=== PATIENT | female | born 1950 | race Caucasian/White ===

== ENCOUNTER 2016-11-01 12:51 | Outpatient (CLI) | payer MEDICARE | END 2016-11-01 23:59 | DX: I48.2 Chronic atrial fibrillation (principal) ==

== ENCOUNTER 2017-02-25 14:09 | Emergency (ER) | payer MEDICARE, OTHER ==
[2017-02-25] MEDS ORDERED: diltiaZEM INJ 5 MG/ML VIAL IVP STA (14:52)
--- NOTE | 2017-02-25 14:56 | ED Physician Documentation ---
History of Present Illness - Stated complaint Stated Complaint: HEART PALPITATIONS,DIZZY - Chief complaint Chief Complaint: Cardiac - History obtained from History obtained from: Patient - Additonal information Additional information: The patient is a 66-year-old female with history of paroxysmal atrial fibrillation who presents with heart palpitations and dizziness that started 2 days ago and have been waxing and waning since that time. She felt a pulse rate in the 140s today. She reports associated mild chest discomfort, shortness of breath, and lightheadedness with standing. She denies nausea or vomiting. Her medications include metoprolol 75 mg twice daily, and warfain. She has had no recent change in her medication. Her last similar episode occurred about 2 weeks ago and converted after about 4 hours after she took an extra metoprolol dose. Her INR was checked 1 week ago and was in the therapeutic range at 3.4. Review of Systems Constitutional: denies: Fever, Fatigue Ears: denies: Tinnitus/ringing Nose: denies: Congestion Throat: denies: Sore throat Cardiac: reports: Chest pain / pressure, Palpitations Respiratory: reports: Dyspnea. denies: Cough GI: denies: Abdominal Pain, Nausea, Vomiting : denies: Dysuria Skin: denies: Rash Musculoskeletal: denies: Back pain, Extremity swelling Neurologic: denies: Focal weakness, Numbness, Headache PD PAST MEDICAL HISTORY - Past Medical History Past Medical History: Yes Cardiovascular: Coronary artery disease, Atrial fibrillation, Arrhythmia Respiratory: None Neuro: Headache/migraine Endocrine/Autoimmune: HyPOthyroidism GI: Other ADJUNCT FACULTY: None HEENT: None Psych: None Musculoskeletal: Osteoarthritis Derm: None - Past Surgical History Past Surgical History: Yes General: Cholecystectomy Ortho: Knee replacement - Present Medications Home Medications: Ambulatory Orders Medication Instructions Recorded Confirmed Aspirin [Aspir 81] 81 mg PO DAILY 01/18/13 02/27/17 DULoxetine [Cymbalta] 0 mg PO DAILY 01/18/13 02/27/17 Levothyroxine [Synthroid] 50 mcg DAILY 01/18/13 02/27/17 Metoprolol Tartrate [Lopressor] 175 mg PO DAILY 01/18/13 02/27/17 Pregabalin [Lyrica] 100 mg PO BID 01/18/13 02/27/17 Estradiol [Dayanara] 1 each TD DAILY 06/02/13 02/27/17 traZODone [Desyrel] 50 mg PO HS 06/02/13 02/27/17 Amiodarone HCl 1 tab PO DAILY 02/27/17 02/27/17 Warfarin [Coumadin] 2.5 mg PO DAILY 02/27/17 02/27/17 - Allergies Allergies/Adverse Reactions: Allergies Allergy/AdvReac Type Severity Reaction Status Date / Time prochlorperazine edisylate * Allergy Unknown unknown Verified 02/27/17 21:41 [From Compazine] prochlorperazine maleate * Allergy Unknown unknown Verified 02/27/17 21:41 [From Compazine] tramadol Allergy Unknown unknown Verified 02/27/17 21:41 NSAIDS (Non-Steroidal AdvReac Severe hx renal Verified 02/27/17 21:41 Anti-Inflamma problems gabapentin AdvReac Unknown Cramps Verified 02/27/17 21:41 rivaroxaban [From Xarelto] AdvReac Unknown Verified 02/27/17 21:41 - Social History Does the pt smoke?: No Smoking Status: Never smoker Does the pt drink ETOH?: No Does the pt have substance abuse?: No - Immunizations Immunizations are current?: Yes - POLST Patient has POLST: No PD ED PE NORMAL - Vitals Vital signs reviewed: Yes (tachycardic) - General General: Alert and oriented X 3, Well developed/nourished, Other (overweight) - HEENT HEENT: Atraumatic, Pharynx benign - Neck Neck: No adenopathy, No JVD - Cardiac Cardiac: No murmur, Other (Rapid rate, irregularly irregular rhythm.) - Respiratory Respiratory: No respiratory distress, Clear bilaterally - Abdomen Abdomen: Soft, Non tender - Back Back: No CVA TTP - Derm Derm: No rash - Extremities Extremities: No edema, No calf tenderness / cord - Neuro Neuro: Alert and oriented X 3, No motor deficit, No sensory deficit Results - Vitals Vitals: Oxygen O2 Source Room air Oxygen Flow Rate 2 - EKG (time done) 14:45 Rate: Rate (enter#) (114) Rhythm: Atrial fibrillation [place]: Normal Intervals: Normal [place] QRS: Normal Ischemia: Normal ST segments Computer interpretation: Agree with computer 17:05 Rate: Rate (enter#) (124) Rhythm: Atrial fibrillation Compare to prior EKG: Unchanged from prior EKG Computer interpretation: Agree with computer 18:04 Rate: Rate (enter#) (75) Rhythm: NSR, LAE [place]: Normal Intervals: Normal [place] QRS: Normal Ischemia: Normal ST segments Compare to prior EKG: Changed from prior EKG (No longer in a-fib.) Computer interpretation: Agree with computer - Labs Labs: Laboratory Tests 02/25/17 02/25/17 02/25/17 14:55 14:55 14:55 WBC 6.6 RBC 4.56 Hgb 12.1 Hct 37.5 MCV 82.3 MCH 26.6 L MCHC 32.3 RDW 16.5 H Plt Count 225 MPV 8.0 Neut # 3.4 Lymph # 2.0 Hunt # 0.5 Eos # 0.6 Baso # 0.1 Absolute Nucleated RBC 0.00 Nucleated RBCs 0.0 PT INR Sodium 140 Potassium 4.1 Chloride 102 Carbon Dioxide 30 Anion Gap 8.0 BUN 17 Creatinine 1.0 Estimated GFR (MDRD) 55 L Glucose 109 H Calcium 9.2 Total Bilirubin 0.5 AST 32 ALT 37 Alkaline Phosphatase 103 Troponin I < 0.04 Total Protein 7.3 Albumin 3.9 Globulin 3.4 Albumin/Globulin Ratio 1.1 Lipase 25 02/25/17 14:55 WBC RBC Hgb Hct MCV MCH MCHC RDW Plt Count MPV Neut # Lymph # Hunt # Eos # Baso # Absolute Nucleated RBC Nucleated RBCs PT 33.7 H INR 3.0 H Sodium Potassium Chloride Carbon Dioxide Anion Gap BUN Creatinine Estimated GFR (MDRD) Glucose Calcium Total Bilirubin AST ALT Alkaline Phosphatase Troponin I Total Protein Albumin Globulin Albumin/Globulin Ratio Lipase Procedures - Cardioversion 1 Time of attempt: 16:56 Indication: Tachyarrhythmia Risks, benefits, alternatives explained to: Pt Prep: IV, O2, residential monitor, Pulse ox, Airway equip Meds: Ativan (1 mg), Propofol (60mg) CS via: AP approach Sync: Biphasic, 200j Post cardioversion rhythm: A-fib Performed by: DANIEL PASTOR 2 Time of attempt: 16:57 Indication: Tachyarrhythmia Prep: IV, O2, residential monitor, Pulse ox, Airway equip CS via: AP approach Sync: 200j Post cardioversion rhythm: A-fib Performed by: DANIEL PASTOR 3 Time of attempt: 16:58 Indication: Tachyarrhythmia Prep: IV, O2, residential monitor, Pulse ox, Airway equip CS via: AP approach Sync: 300j Post cardioversion rhythm: A-fib Performed by: ED MD 4 Time of attempt: 17:00 Indication: Tachyarrhythmia Prep: IV, O2, residential monitor, Pulse ox, Airway equip Meds: Propofol (Additional 20 mg administered.) Sync: 360j Post cardioversion rhythm: A-fib Performed by: ED MD [facility] MEDICAL DECISION MAKING - ED course Complexity details: reviewed old records, reviewed results, re-evaluated patient , considered differential, d/w patient, d/w family, d/w apprenticeship consultant ED course: The patient's presentation is significant for atrial fibrillation with rapid ventricular response. This is a recurrent episode for her, despite treatment with metoprolol at 75 mg twice daily. She is on warfarin, with an INR today of 3.0. Her electrolytes are normal. Treatment in the emergency department included administration of Cardizem 10 mg IV, which slowed the patient's rate, but did not convert her rhythm. After discussing risks and benefits with her, the patient underwent attempts with electrocardioversion. She was sedated with Ativan and propofol, and despite four attempts at cardioversion up to 360 J, she remained in atrial fibrillation. Subsequently procainamide was administered IV, and the patient's rhythm converted to normal sinus before she had received the entire gram of procainamide. I discussed her condition with committee member who advises that she continue her current dosage of metoprolol and follow-up this week with her primary committee member, Dr. Urbina. I discussed with the patient and her the importance of outpatient follow -up, as well as potentially worrisome signs or symptoms that should prompt reevaluation in the emergency department. Departure - Departure Disposition: 01 Home, Self Care Clinical Impression: Atrial fibrillation status post cardioversion Condition: Stable Instructions: ED Afib Follow-Up: Shaunna Urbina DO [Physician No Access] - Teresa Garcia MD [Primary Care Provider] - Comments: Continue metoprolol at 75 mg twice daily. Continue warfarin as previously prescribed. Follow up with your committee member this week. Call to schedule appointment. Return to the emergency department if you develop recurrent atrial fibrillation with shortness of breath, chest discomfort, or otherwise worsening symptoms. Discharge Date/Time: 02/25/17 18:49
[2017-02-25] MEDS ORDERED: SODIUM CHLORIDE FLUSH 0.9% 10 ML SYRINGE IVP ONE (15:04)
[2017-02-25] MEDS ORDERED: diltiaZEM INJ 5 MG/ML VIAL ONE (15:05)
[2017-02-25 15:10] LABS: BASOPHILS # (AUTO) 0.1 10^3/uL (0.0-0.1); BASOPHILS % (AUTO) 1.1 %; EOSINOPHILS # (AUTO) 0.6 10^3/uL (0.0-0.7); EOSINOPHILS % (AUTO) 9.5 %; HCT - HEMATOCRIT 37.5 % (37.0-47.0); HGB - HEMOGLOBIN 12.1 g/dL (12.0-16.0); LYMPHOCYTES % (AUTO) 30.7 %; MEAN CORPUSCULAR HEMOGLOBIN 26.6 pg (27.0-31.0); MEAN CORPUSCULAR HGB CONC 32.3 g/dL (32.0-36.0); MEAN CORPUSCULAR VOLUME 82.3 fL (81.0-99.0); MONOCYTES # (AUTO) 0.5 10^3/uL (0.0-1.0); NEUTROPHILS # (AUTO) 3.4 10^3/uL (1.5-6.6); NEUTROPHILS % (AUTO) 50.7 %; RED BLOOD COUNT 4.56 10^6/uL (4.20-5.40); RED CELL DISTRIBUTION WIDTH 16.5 % (12.0-15.0); UNCORRECTED WHITE BLOOD COUNT 6.6 x10^3/uL; WHITE BLOOD COUNT 6.6 x10^3/uL (4.8-10.8)
[2017-02-25] MEDS ORDERED: SODIUM CHLORIDE 0.9% 250 ML IV ONE (15:17)
[2017-02-25 15:23] LABS: PT - PROTHROMBIN TIME 33.7 secs (9.9-12.6)
[2017-02-25 15:24] LABS: ALBUMIN/GLOBULIN RATIO 1.1 (1.0-2.2); BILIRUBIN,TOTAL 0.5 mg/dL (0.2-1.0); CALCIUM 9.2 mg/dL (8.5-10.3); POTASSIUM 4.1 mmol/L (3.5-5.0); TOTAL PROTEIN 7.3 g/dL (6.7-8.2)
[2017-02-25] MEDS ORDERED: MIDAZOLAM 2 MG/2 ML VIAL IVP STA (16:41)
[2017-02-25] MEDS ORDERED: PROPOFOL 200 MG/20 ML VIAL IVP STA (16:41)
[2017-02-25] MEDS ORDERED: PROPOFOL 200 MG/20 ML VIAL IVP ONE (16:45)
[2017-02-25] MEDS ORDERED: MIDAZOLAM 2 MG/2 ML VIAL ONE (16:45)
[2017-02-25] MEDS ORDERED: PROCAINAMIDE 100 MG/1 ML 10 ML MDV IV ONE (17:10)
[2017-02-25] MEDS ORDERED: PROCAINAMIDE 1,000 MG in SODIUM CHLORIDE 0.9% 240 ML IV STA (17:19)
[2017-02-25 18:31] VITALS: BP 131/95
== END 2017-02-25 18:49 | disposition home or self-care (01) ==
LOC: ED 14:09
DX: I48.0 Paroxysmal atrial fibrillation (principal); I25.10 Atherosclerotic heart disease of native coronary artery without angina pectoris; Z79.01 Long term (current) use of anticoagulants; Z79.82 Long term (current) use of aspirin; Z96.659 Presence of unspecified artificial knee joint
CPT/HCPCS: 36415; 80053; 83690; 84484; 85025; 85610; 92960; 93005; 94770; 96361; 96365; 96375; 99152; 99284; J2690

== ENCOUNTER 2017-02-27 20:51 | Outpatient (CLI) | payer MEDICARE, OTHER | END 2017-02-27 20:52 | disposition critical access hospital (66) | LOC: EMS 20:51 | PROVIDERS: ATTEND Surgery | DX: R09.89 Other specified symptoms and signs involving the circulatory and respiratory systems (principal) | CPT/HCPCS: A0425; A0427 ==

== ENCOUNTER 2017-02-27 21:34 | Emergency (ER) | payer MEDICARE, OTHER ==
--- NOTE | 2017-02-27 21:53 | ED Physician Documentation ---
PD HPI CHEST PAIN - Stated complaint Stated Complaint: AFIB - Chief complaint Chief Complaint: Cardiac - History obtained from History obtained from: Patient - History of Present Illness Timing - onset: How many hours ago (few), Today Timing - duration: Hours (onset of fast heart rate earlier and talked with Auricular Therapist, who directed extra dose of Metoprolol PO. She had also been given Rx for starting Amiodarone and was directed to start that. Was not improving so called EMS. David, Medics note her rhythm transitioned to NSR with PVCs.) Timing - details: Abrupt onset, Now resolved Quality: Pressure, Tightness Location: Substernal Radiation: No: Jaw, Neck, Back, Abdominal, Left upper extremity, Right upper extremity, Other Worsened by: No: Movement, Palpation, Position Associated symptoms: Palpitations. No: Shortness of air, Nausea, Feeling faint / dizzy Similar symptoms before: Diagnosis (atrial fib paroxysmal) Recently seen: Emergency Dept (just couple days ago with improvement from fast afib to NSR with Procanamide (cardioversion did not convert it). Talked with Auricular Therapist, who Rx Amiodarone.) Review of Systems Constitutional: denies: Fever, Chills Nose: denies: Rhinorrhea / runny nose, Congestion Throat: denies: Sore throat Cardiac: reports: Palpitations. denies: Chest pain / pressure, Pedal edema, Calf pain Respiratory: denies: Dyspnea, Cough GI: denies: Vomiting, Diarrhea Musculoskeletal: denies: Extremity swelling Neurologic: denies: Focal weakness, Numbness, Near syncope PD PAST MEDICAL HISTORY - Past Medical History Cardiovascular: Coronary artery disease, Atrial fibrillation, Arrhythmia Respiratory: None Neuro: Headache/migraine Endocrine/Autoimmune: HyPOthyroidism GI: Other TEST ENG: None HEENT: None Psych: None Musculoskeletal: Osteoarthritis Derm: None - Past Surgical History Past Surgical History: Yes General: Cholecystectomy Ortho: Knee replacement - Present Medications Home Medications: Ambulatory Orders Medication Instructions Recorded Confirmed Aspirin [Aspir 81] 81 mg PO DAILY 01/18/13 02/27/17 DULoxetine [Cymbalta] 0 mg PO DAILY 01/18/13 02/27/17 Levothyroxine [Synthroid] 50 mcg DAILY 01/18/13 02/27/17 Metoprolol Tartrate [Lopressor] 175 mg PO DAILY 01/18/13 02/27/17 Pregabalin [Lyrica] 100 mg PO BID 01/18/13 02/27/17 Estradiol [Dayanara] 1 each TD DAILY 06/02/13 02/27/17 traZODone [Desyrel] 50 mg PO HS 06/02/13 02/27/17 Amiodarone HCl 1 tab PO DAILY 02/27/17 02/27/17 Warfarin [Coumadin] 2.5 mg PO DAILY 02/27/17 02/27/17 - Allergies Allergies/Adverse Reactions: Allergies Allergy/AdvReac Type Severity Reaction Status Date / Time prochlorperazine edisylate * Allergy Unknown unknown Verified 02/27/17 21:41 [From Compazine] prochlorperazine maleate * Allergy Unknown unknown Verified 02/27/17 21:41 [From Compazine] tramadol Allergy Unknown unknown Verified 02/27/17 21:41 NSAIDS (Non-Steroidal AdvReac Severe hx renal Verified 02/27/17 21:41 Anti-Inflamma problems gabapentin AdvReac Unknown Cramps Verified 02/27/17 21:41 rivaroxaban [From Xarelto] AdvReac Unknown Verified 02/27/17 21:41 - Social History Does the pt smoke?: No Smoking Status: Never smoker Does the pt drink ETOH?: No Does the pt have substance abuse?: No - Immunizations Immunizations are current?: Yes - POLST Patient has POLST: No PD ED PE NORMAL - Vitals Vital signs reviewed: Yes - General General: Alert and oriented X 3, No acute distress, Well developed/nourished - Neck Neck: Supple, no meningeal sign, No adenopathy, No JVD, No bruit - Cardiac Cardiac: RRR, No murmur - Respiratory Respiratory: Clear bilaterally - Extremities Extremities: No tenderness to palpate, Normal ROM s pain, No edema, No calf tenderness / cord Results - Vitals Vitals: Vital Signs - 24 hr 02/27/17 02/27/17 02/27/17 21:37 23:01 23:02 Temperature 37.2 C Heart Rate 79 67 Respiratory 20 16 Rate Blood Pressure 160/85 H 145/68 H O2 Saturation 98 97 Oxygen O2 Source Room air - EKG (time done) 21:41 Rate: Rate (enter#) (88) Rhythm: NSR (with frequent PVCs (bigeminy at times).) Ischemia: No: ST elevation c/w ischemia, ST depression PD MEDICAL DECISION MAKING - ED course Complexity details: reviewed old records, considered differential (resolved to NSR with frequent PVCs by ED arrival. Remained NSR and discharged home. Had had labs/lytes checked recently (last few days). ), d/w patient Departure - Departure Disposition: Home, Self Care Clinical Impression: Paroxysmal atrial fibrillation Condition: Stable Record reviewed to determine appropriate education?: Yes Instructions: ED Afib Follow-Up: Teresa Garcia MD [Primary Care Provider] - Comments: Continue your current medications and the new amiodarone prescribed by her field worker. Maintain good hydration. Return as needed. Discharge Date/Time: 02/27/17 23:02
[2017-02-27 23:02] VITALS: BP 145/68
== END 2017-02-27 23:02 | disposition home or self-care (01) ==
LOC: EDUNIT# → ED 21:34
DX: I48.0 Paroxysmal atrial fibrillation (principal); R94.31 Abnormal electrocardiogram [ECG] [EKG]; I25.10 Atherosclerotic heart disease of native coronary artery without angina pectoris; E03.9 Hypothyroidism, unspecified; Z96.659 Presence of unspecified artificial knee joint; Z79.01 Long term (current) use of anticoagulants; Z79.82 Long term (current) use of aspirin
CPT/HCPCS: 99283; 99284

== ENCOUNTER 2017-12-28 18:55 | Outpatient (CLI) | payer MEDICARE, OTHER | END 2017-12-28 18:56 | disposition critical access hospital (66) | LOC: EMS 18:55 | PROVIDERS: ATTEND Surgery | DX: R11.2 Nausea with vomiting, unspecified (principal); R10.9 Unspecified abdominal pain; R51 Headache; R19.7 Diarrhea, unspecified | CPT/HCPCS: A0425; A0427 ==

== ENCOUNTER 2017-12-28 19:41 | Emergency (ER) | payer MEDICARE, OTHER ==
--- NOTE | 2017-12-28 20:45 | ED Physician Documentation ---
PD HPI NVD - Stated complaint Stated Complaint: NAUSEA, VOMITING - Chief complaint Chief Complaint: Abd Pain - History obtained from History obtained from: Patient - History of Present Illness Timing - onset: Today Timing - details: Gradual onset (some onset of nausea with less appetite starting this morning and then abruptly worse with nausea/vomiting/diarrhea starting about 3 pm, which has continued.) Associated symptoms: No: Fever, Abdominal pain, Chest pain, Hematemesis, Hematochezia, Near syncope / syncope Contributing factors: No: Sick contact, Bad food, Travel, Recent antibiotics Improved by: No: Eating, Vomiting Worsened by: Eating Similar symptoms before: Has not had sx before Recently seen: Not recently seen Review of Systems Constitutional: reports: Myalgias. denies: Fever, Chills Nose: denies: Rhinorrhea / runny nose, Congestion Throat: denies: Sore throat Cardiac: denies: Chest pain / pressure, Palpitations Respiratory: denies: Dyspnea, Cough GI: reports: Nausea, Vomiting, Diarrhea. denies: Abdominal Pain, Hematemesis, Bloody / black stool : denies: Dysuria, Frequency Skin: denies: Rash, Lesions Neurologic: reports: Generalized weakness. 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 HEENT: None Psych: None Musculoskeletal: Osteoarthritis Derm: None - Past Surgical History Past Surgical History: Yes General: Cholecystectomy Ortho: Knee replacement - Present Medications Home Medications: Ambulatory Orders Medication Instructions Recorded Confirmed Aspirin [Aspir 81] 81 mg PO DAILY 01/18/13 02/27/17 DULoxetine [Cymbalta] 0 mg PO DAILY 01/18/13 02/27/17 Levothyroxine [Synthroid] 50 mcg DAILY 01/18/13 02/27/17 Metoprolol Tartrate [Lopressor] 175 mg PO DAILY 01/18/13 02/27/17 Pregabalin [Lyrica] 100 mg PO BID 01/18/13 02/27/17 Estradiol [Dayanara] 1 each TD DAILY 06/02/13 02/27/17 traZODone [Desyrel] 50 mg PO HS 06/02/13 02/27/17 Diphenoxylate/Atropine [Lomotil] 1 each PO QID PRN #15 tablet 12/28/17 Ondansetron Odt [Zofran] 4 mg TL Q6H PRN #15 tablet 12/28/17 - Allergies Allergies/Adverse Reactions: Allergies Allergy/AdvReac Type Severity Reaction Status Date / Time prochlorperazine edisylate * Allergy Unknown unknown Verified 12/28/17 19:47 [From Compazine] prochlorperazine maleate * Allergy Unknown unknown Verified 12/28/17 19:47 [From Compazine] tramadol Allergy Unknown unknown Verified 12/28/17 19:47 NSAIDS (Non-Steroidal AdvReac Severe hx renal Verified 12/28/17 19:47 Anti-Inflamma problems gabapentin AdvReac Unknown Cramps Verified 12/28/17 19:47 rivaroxaban [From Xarelto] AdvReac Unknown Verified 12/28/17 19:47 - Social History Does the pt smoke?: No Smoking Status: Never smoker Does the pt drink ETOH?: No Does the pt have substance abuse?: No - Immunizations Immunizations are current?: Yes - POLST Patient has POLST: No PD ED PE NORMAL - Vitals Vital signs reviewed: Yes - General General: Alert and oriented X 3, Well developed/nourished - HEENT HEENT: Pharynx benign - Neck Neck: Supple, no meningeal sign, No adenopathy - Cardiac Cardiac: RRR, No murmur - Respiratory Respiratory: Clear bilaterally - Abdomen Abdomen: Normal bowel sounds, Soft, Non tender, Non distended, No organomegaly - Back Back: No CVA TTP - Derm Derm: Normal color, Warm and dry - Extremities Extremities: No deformity, No tenderness to palpate, Normal ROM s pain, No edema , No calf tenderness / cord - Neuro Neuro: Alert and oriented X 3, No motor deficit, Normal speech Results - Vitals Vitals: Vital Signs - 24 hr 12/28/17 22:50 Temperature 36.6 C Heart Rate 79 Respiratory 18 Rate Blood Pressure 147/58 H O2 Saturation 100 Oxygen O2 Source Room air - Labs Labs: Laboratory Tests 12/28/17 12/28/17 12/28/17 20:42 20:56 20:56 WBC 11.6 H RBC 4.70 Hgb 13.2 Hct 41.3 MCV 87.9 MCH 28.2 MCHC 32.1 RDW 14.5 Plt Count 250 MPV 8.0 Neut # (Auto) 10.3 H Lymph # (Auto) 0.9 L [place] # (Auto) 0.4 Eos # (Auto) 0.1 Baso # (Auto) 0.1 Absolute Nucleated RBC 0.00 Nucleated RBC % 0.0 Sodium 139 Potassium 4.4 Chloride 104 Carbon Dioxide 28 Anion Gap 7.0 BUN 19 Creatinine 0.9 Estimated GFR (MDRD) 62 L Glucose 120 H Calcium 8.9 Total Bilirubin 0.5 AST 34 ALT 39 Alkaline Phosphatase 102 Total Protein 7.6 Albumin 4.0 Globulin 3.6 Albumin/Globulin Ratio 1.1 Lipase 47 Urine Color YELLOW Urine Clarity CLEAR Urine pH 5.5 Ur Specific [place] >=1.030 H Urine Protein 30 H Urine Glucose (UA) NEGATIVE Urine Ketones NEGATIVE Urine Occult Blood NEGATIVE Urine Nitrite NEGATIVE Urine Bilirubin NEGATIVE Urine Urobilinogen 0.2 (NORMAL) Ur Leukocyte Esterase NEGATIVE Urine RBC 0-5 Urine WBC 0-3 Ur Squamous Epith Cells MOD Squamous H Urine Bacteria Rare Urine Mucus Few Strands Ur Microscopic Review INDICATED Urine Culture Comments NOT INDICATED PD MEDICAL DECISION MAKING - ED course Complexity details: re-evaluated patient (she is feeling better with IV fluids and meds. ), considered differential (sounds like viral GE or food related. vomiting and diarrhea without stomach tenderness. ), d/w patient Departure - Departure Disposition: 01 Home, Self Care Clinical Impression: Nausea vomiting and diarrhea Condition: Stable Record reviewed to determine appropriate education?: Yes Instructions: ED Diet Vomiting Diarrhea Follow-Up: Teresa Garcia MD [Primary Care Provider] - Prescriptions: Diphenoxylate/Atropine [Lomotil] 1 each PO QID PRN #15 tablet PRN Reason: Diarrhea Ondansetron Odt [Zofran] 4 mg TL Q6H PRN #15 tablet PRN Reason: Nausea / Vomiting Comments: Small frequent fluids and bland food for the next day or so. Ondansetron if needed for nausea. Lomotil if needed for diarrhea. Illnesses with vomiting and diarrhea that come on abruptly like this usually are short-lived and decrease over a day or 2. Recheck if you are not better into tomorrow. You be considered infectious while still having symptoms and diarrhea. Good handwashing to prevent transfer of an infection. I hope your daughter does well with delivering her baby. Discharge Date/Time: 12/28/17 22:53
[2017-12-28 20:54] LABS: BILIRUBIN,URINE NEGATIVE (NEGATIVE); GLUCOSE, URINE (UA) NEGATIVE (NEGATIVE); KETONES,URINE (UA) NEGATIVE (NEGATIVE); LEUKOCYTE ESTERASE, URINE NEGATIVE (NEGATIVE); NITRITE,URINE NEGATIVE (NEGATIVE); OCCULT BLOOD,URINE NEGATIVE (NEGATIVE); PH,URINE 5.5 PH (5.0-7.5); PROTEIN,URINE 30 mg/dL (NEGATIVE); UROBILINOGEN,URINE 0.2 (NORMAL) E.U./dL (NORMAL)
[2017-12-28 20:59] LABS: CLARITY,URINE CLEAR (CLEAR)
[2017-12-28] MEDS ORDERED: SODIUM CHLORIDE 0.9% 1,000 ML IV ONE ×2 (20:59→21:00)
[2017-12-28] MEDS ORDERED: DIPHENOX/ATROPINE 2.5/0.025 MG TABLET PO STA (20:59)
[2017-12-28] MEDS ORDERED: ONDANSETRON 4 MG/2 ML VIAL IVP STA (20:59)
[2017-12-28] MEDS ORDERED: fentaNYL 100 MCG/2 ML VIAL IVP STA (21:00)
[2017-12-28 21:08] LABS: BASOPHILS # (AUTO) 0.1 10^3/uL (0.0-0.1); BASOPHILS % (AUTO) 0.5 %; EOSINOPHILS # (AUTO) 0.1 10^3/uL (0.0-0.7); EOSINOPHILS % (AUTO) 0.5 %; HGB - HEMOGLOBIN 13.2 g/dL (12.0-16.0); LYMPHOCYTES # (AUTO) 0.9 10^3/uL (1.5-3.5); LYMPHOCYTES % (AUTO) 7.5 %; MEAN CORPUSCULAR HEMOGLOBIN 28.2 pg (27.0-31.0); MEAN CORPUSCULAR HGB CONC 32.1 g/dL (32.0-36.0); MEAN CORPUSCULAR VOLUME 87.9 fL (81.0-99.0); MONOCYTES # (AUTO) 0.4 10^3/uL (0.0-1.0); NEUTROPHILS # (AUTO) 10.3 10^3/uL (1.5-6.6); NEUTROPHILS % (AUTO) 88.5 %; PLT - PLATELET COUNT 250 10^3/uL (130-450); RED CELL DISTRIBUTION WIDTH 14.5 % (12.0-15.0); WHITE BLOOD COUNT 11.6 x10^3/uL (4.8-10.8)
[2017-12-28 21:16] LABS: BACTERIA,URINE Rare /HPF (None Seen); MUCUS,URINE Few Strands; RBC,URINE 0-5 /HPF (0-5); SQUAMOUS EPITHELIAL CELL,UR MOD Squamous (<= Few)
[2017-12-28 21:21] LABS: ALBUMIN/GLOBULIN RATIO 1.1 (1.0-2.2); BILIRUBIN,TOTAL 0.5 mg/dL (0.2-1.0); CALCIUM 8.9 mg/dL (8.5-10.3); CREATININE 0.9 mg/dL (0.4-1.0); TOTAL PROTEIN 7.6 g/dL (6.7-8.2)
[2017-12-28] MEDS ORDERED: HALOPERIDOL 5 MG/ML VIAL IVP ONE (22:10)
[2017-12-28] MEDS ORDERED: ONDANSETRON ODT 4 MG Prepack 2 TL PRN (22:11)
[2017-12-28 22:51] VITALS: BP 147/58
== END 2017-12-28 22:53 | disposition home or self-care (01) ==
LOC: EDUNIT# → ED 19:41
DX: R11.2 Nausea with vomiting, unspecified (principal); R19.7 Diarrhea, unspecified; I25.10 Atherosclerotic heart disease of native coronary artery without angina pectoris; I48.91 Unspecified atrial fibrillation; I49.9 Cardiac arrhythmia, unspecified; E03.9 Hypothyroidism, unspecified; M19.90 Unspecified osteoarthritis, unspecified site; Z79.82 Long term (current) use of aspirin
CPT/HCPCS: 36415; 80053; 81001; 83690; 85025; 96361; 96374; 96375; 99283; 99284; A9270; 81003; 87086

== ENCOUNTER 2018-07-24 23:21 | Emergency (ER) | payer MEDICARE, OTHER ==
--- NOTE | 2018-07-25 00:32 | ED Physician Documentation ---
PD HPI CHEST PAIN - Stated complaint Stated Complaint: CHEST PX - Chief complaint Chief Complaint: Cardiac - History obtained from History obtained from: Patient - History of Present Illness Timing - onset: How many days ago (2) Timing - onset during: Light activity Timing - duration: Days (she has had 2 days of her heart rhythm feeling at times irregular c/w atrial fib. No chest pain nor dyspnea. Feeling lightheaded at times.) Timing - details: Abrupt onset, Still present, Intermittant Quality: No: Pressure, Tightness Location: Substernal (she is feeling irregular beats, but no pain nor pressure.) Radiation: No: Jaw, Neck Improved by: No: Rest Worsened by: No: Inspiration, Movement Associated symptoms: Shortness of air, Feeling faint / dizzy, Palpitations. No: Nausea, Vomiting, General Weakness, Cough Similar symptoms before: Diagnosis (has had atrial fib in the past and had been on several different meds. Had ablation last year and only on metoprolol now. Had not had atrial fib for a year or so and now having some occasional symptoms. 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 HEENT: None Psych: None Musculoskeletal: Osteoarthritis Derm: None - Past Surgical History Past Surgical History: Yes General: Cholecystectomy Ortho: Knee replacement - Present Medications Home Medications: Ambulatory Orders Medication Instructions Recorded Confirmed Aspirin [Aspir 81] 81 mg PO DAILY 01/18/13 02/27/17 DULoxetine [Cymbalta] 0 mg PO DAILY 01/18/13 02/27/17 Levothyroxine [Synthroid] 50 mcg DAILY 01/18/13 02/27/17 Metoprolol Tartrate [Lopressor] 175 mg PO DAILY 01/18/13 02/27/17 Pregabalin [Lyrica] 100 mg PO BID 01/18/13 02/27/17 Estradiol [Dayanara] 1 each TD DAILY 06/02/13 02/27/17 traZODone [Desyrel] 50 mg PO HS 06/02/13 02/27/17 Diphenoxylate/Atropine [Lomotil] 1 each PO QID PRN #15 tablet 12/28/17 Ondansetron Odt [Zofran] 4 mg TL Q6H PRN #15 tablet 12/28/17 Digoxin 125 mcg PO DAILY #20 tablet 07/25/18 Potassium Chloride 10 meq PO DAILY #15 tablet.er 07/25/18 - Allergies Allergies/Adverse Reactions: Allergies Allergy/AdvReac Type Severity Reaction Status Date / Time prochlorperazine edisylate * Allergy Unknown unknown Verified 12/28/17 19:47 [From Compazine] prochlorperazine maleate * Allergy Unknown unknown Verified 12/28/17 19:47 [From Compazine] tramadol Allergy Unknown unknown Verified 12/28/17 19:47 NSAIDS (Non-Steroidal AdvReac Severe hx renal Verified 12/28/17 19:47 Anti-Inflamma problems gabapentin AdvReac Unknown Cramps Verified 12/28/17 19:47 rivaroxaban [From Xarelto] AdvReac Unknown Verified 12/28/17 19:47 - Social History Does the pt smoke?: No Smoking Status: Never smoker Does the pt drink ETOH?: No Does the pt have substance abuse?: No - Immunizations Immunizations are current?: Yes - POLST Patient has POLST: No Results - Vitals Vitals: Vital Signs - 24 hr 07/24/18 07/25/18 07/25/18 23:32 00:02 01:29 Temperature 36.7 C Heart Rate 127 H 69 71 Respiratory 17 16 16 Rate Blood Pressure 153/118 H 178/108 H 138/87 H O2 Saturation 98 98 98 07/25/18 07/25/18 07/25/18 01:37 01:39 01:43 Temperature Heart Rate 68 69 65 Respiratory Rate Blood Pressure 180/78 H 165/96 H 172/82 H O2 Saturation 07/25/18 07/25/18 07/25/18 01:50 01:52 02:11 Temperature Heart Rate 66 69 87 Respiratory Rate Blood Pressure 157/64 H 147/80 H 141/92 H O2 Saturation 07/25/18 07/25/18 07/25/18 02:30 03:31 04:17 Temperature Heart Rate 148 H 74 70 Respiratory 14 16 16 Rate Blood Pressure 157/76 H 157/92 H 143/73 H O2 Saturation 99 96 96 Oxygen O2 Source Room air - Labs Labs: Laboratory Tests 07/24/18 07/24/18 07/24/18 23:40 23:40 23:40 WBC 8.0 RBC 5.05 Hgb 14.7 Hct 44.6 MCV 88.4 MCH 29.1 MCHC 33.0 RDW 14.7 Plt Count 276 MPV 8.7 Neut # (Auto) 4.2 Lymph # (Auto) 3.0 [place] # (Auto) 0.5 Eos # (Auto) 0.2 Baso # (Auto) 0.1 Absolute Nucleated RBC 0.03 Nucleated RBC % 0.4 Sodium 138 Potassium 3.4 L Chloride 99 L Carbon Dioxide 28 Anion Gap 11.0 BUN 14 Creatinine 0.9 Estimated GFR (MDRD) 62 L Glucose 104 H Calcium 9.3 Magnesium 2.2 Total Bilirubin 0.4 AST 23 ALT 28 Alkaline Phosphatase 95 B-Natriuretic Peptide 132 H Total Protein 8.7 H Albumin 4.6 Globulin 4.1 Albumin/Globulin Ratio 1.1 Lipase 32 Departure - Departure Disposition: 01 Home, Self Care Clinical Impression: Atrial fibrillation with rapid ventricular response Condition: Stable Record reviewed to determine appropriate education?: Yes Instructions: ED Afib Follow-Up: Teresa Garcia MD [Primary Care Provider] - Shaunna Urbina DO [Physician No Access] - Prescriptions: Digoxin 125 mcg PO DAILY #20 tablet Potassium Chloride 10 meq PO DAILY #15 tablet.er Comments: Continue current medications. Stay well hydrated. Take a potassium supplement daily for 10 days. Add Digoxin to your medications daily. Follow up with your Gas Tender, call for an appt. Recheck if persistent fast heart rate. Discharge Date/Time: 07/25/18 04:35
[2018-07-25] MEDS ORDERED: METOPROLOL 5 MG/5 ML VIAL IVP STA ×2 (01:06→02:28)
[2018-07-25] MEDS ORDERED: MAGNESIUM SULFATE 2 GRAM 2 GM/50 ML BAG IV ONE (01:06)
[2018-07-25] MEDS ORDERED: SODIUM CHLORIDE 0.9% 1,000 ML IV ONE (01:06)
[2018-07-25 01:19] LABS: BASOPHILS # (AUTO) 0.1 10^3/uL (0.0-0.1); BASOPHILS % (AUTO) 0.7 %; EOSINOPHILS # (AUTO) 0.2 10^3/uL (0.0-0.7); EOSINOPHILS % (AUTO) 2.2 %; HGB - HEMOGLOBIN 14.7 g/dL (12.0-16.0); LYMPHOCYTES % (AUTO) 37.3 %; MEAN CORPUSCULAR HEMOGLOBIN 29.1 pg (27.0-31.0); MEAN CORPUSCULAR VOLUME 88.4 fL (81.0-99.0); MEAN PLATELET VOLUME 8.7 fL (7.9-10.8); MONOCYTES # (AUTO) 0.5 10^3/uL (0.0-1.0); MONOCYTES % (AUTO) 6.5 %; NEUTROPHILS # (AUTO) 4.2 10^3/uL (1.5-6.6); NEUTROPHILS % (AUTO) 53.3 %; PLT - PLATELET COUNT 276 10^3/uL (130-450); RED BLOOD COUNT 5.05 10^6/uL (4.20-5.40); RED CELL DISTRIBUTION WIDTH 14.7 % (12.0-15.0)
[2018-07-25 01:26] LABS: ALBUMIN 4.6 g/dL (3.2-5.5); ALBUMIN/GLOBULIN RATIO 1.1 (1.0-2.2); BILIRUBIN,TOTAL 0.4 mg/dL (0.2-1.0); CALCIUM 9.3 mg/dL (8.5-10.3); CREATININE 0.9 mg/dL (0.4-1.0); MAGNESIUM 2.2 mg/dL (1.7-2.8); TOTAL PROTEIN 8.7 g/dL (6.7-8.2)
[2018-07-25] MEDS ORDERED: POTASSIUM BICARB 25 MEQ TABLET PO STA (02:00)
[2018-07-25] MEDS ORDERED: DIGOXIN 500 MCG/2 ML AMP IVP STA (03:17)
[2018-07-25 04:23] VITALS: BP 143/73
== END 2018-07-25 04:35 | disposition home or self-care (01) ==
LOC: ED 23:21
DX: I48.91 Unspecified atrial fibrillation (principal); I25.10 Atherosclerotic heart disease of native coronary artery without angina pectoris; Z86.79 Personal history of other diseases of the circulatory system; Z79.899 Other long term (current) drug therapy
CPT/HCPCS: 36415; 80053; 83690; 83735; 83880; 85025; 93005; 96361; 96365; 96375; 96376; 99284; A9270

== ENCOUNTER 2020-05-07 07:00 | Outpatient (CLI) | payer MEDICARE, OTHER | END 2020-05-07 23:59 | disposition home or self-care (01) | LOC: LAB.R 07:00 | PROVIDERS: ATTEND Physician Assistant | DX: N30.01 Acute cystitis with hematuria (principal) | CPT/HCPCS: 87086; 87181 ==

== ENCOUNTER 2020-05-25 08:00 | Outpatient (CLI) | payer MEDICARE, OTHER ==
[2020-05-25 20:00] LABS: BASOPHILS # (AUTO) 0.1 10^3/uL (0.0-0.1); BASOPHILS % (AUTO) 0.8 %; EOSINOPHILS # (AUTO) 0.2 10^3/uL (0.0-0.7); EOSINOPHILS % (AUTO) 2.5 %; HGB - HEMOGLOBIN 12.2 g/dL (12.0-16.0); LYMPHOCYTES # (AUTO) 2.2 10^3/uL (1.5-3.5); LYMPHOCYTES % (AUTO) 34.3 %; MEAN CORPUSCULAR HEMOGLOBIN 29.8 pg (27.0-31.0); MEAN CORPUSCULAR HGB CONC 32.1 g/dL (32.0-36.0); MEAN CORPUSCULAR VOLUME 92.7 fL (81.0-99.0); MONOCYTES # (AUTO) 0.6 10^3/uL (0.0-1.0); MONOCYTES % (AUTO) 8.6 %; NEUTROPHILS # (AUTO) 3.4 10^3/uL (1.5-6.6); NEUTROPHILS % (AUTO) 53.5 %; PLT - PLATELET COUNT 247 10^3/uL (130-450); RED CELL DISTRIBUTION WIDTH 12.9 % (12.0-15.0); WHITE BLOOD COUNT 6.4 x10^3/uL (4.8-10.8)
[2020-05-25 20:12] LABS: ALBUMIN 3.8 g/dL (3.2-5.5); BILIRUBIN,TOTAL 0.4 mg/dL (0.2-1.0); CALCIUM 9.1 mg/dL (8.5-10.3); TOTAL PROTEIN 7.5 g/dL (6.7-8.2)
== END 2020-05-25 23:59 | disposition home or self-care (01) ==
LOC: LAB.S 08:00
PROVIDERS: ATTEND Physician Assistant Medical
DX: N30.01 Acute cystitis with hematuria (principal); R30.0 Dysuria
CPT/HCPCS: 36415; 80053; 85025; 87086

== ENCOUNTER 2020-09-19 08:00 | Outpatient (CLI) | payer MEDICARE, OTHER | END 2020-09-19 23:59 | disposition home or self-care (01) | LOC: LAB.R 08:00 | PROVIDERS: ATTEND Physician Assistant | DX: N39.0 Urinary tract infection, site not specified (principal) | CPT/HCPCS: 87077; 87086; 87181 ==

== ENCOUNTER 2020-12-23 23:04 | Outpatient (CLI) | payer MEDICARE, OTHER | END 2020-12-23 23:05 | disposition critical access hospital (66) | LOC: EMS 23:04 | DX: F41.9 Anxiety disorder, unspecified (principal); R25.1 Tremor, unspecified; R00.2 Palpitations; R06.02 Shortness of breath | CPT/HCPCS: A0425; A0429 ==

== ENCOUNTER 2020-12-23 23:47 | Emergency (ER) | payer MEDICARE, OTHER ==
--- OUTSIDE RECORDS SUMMARY | 2020-12-23 23:58 | EXTERNAL MEDICAL SUMMARY RPT | Continuity of Care Document ---
:1950 Demographics Phone Unavailable Preferred Language Unknown Marital Status Unknown Gnosticism Affiliation Unknown Race Unknown Ethnic Group Unknown Author Organization [facility] Address [address] [phone] Phone Allergies Encounters Medications Problems Results
--- NOTE | 2020-12-24 00:57 | ED Physician Documentation ---
History of Present Illness - Stated complaint Stated Complaint: CHILLS,SWEATS, JITTERY - Chief complaint Chief Complaint: Cardiac - History obtained from History obtained from: Patient - History of Present Illness Timing: Yesterday Pain level now: 0 Improved by: rest Worsened by: standing, ambulating - Additonal information Additional information: Patient complains of feeling jittery, tremulous, and short of breath since yesterday morning. She says she has occasional PVCs but they had been noticeably more frequent today. she was started on prednisone, 40 mg QD, three days ago for arthritis. Review of Systems Constitutional: reports: Chills, Sweats. denies: Fever, Fatigue Cardiac: reports: Palpitations. denies: Chest pain / pressure, Pedal edema, Calf pain Respiratory: reports: Dyspnea. 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 HEENT: None Psych: None Musculoskeletal: Osteoarthritis Derm: None - Past Surgical History Past Surgical History: Yes General: Cholecystectomy Ortho: Knee replacement - Present Medications Home Medications: Ambulatory Orders Medication Instructions Recorded Confirmed Aspirin [Aspir 81] 81 mg PO DAILY 01/18/13 12/24/20 DULoxetine [Cymbalta] 60 mg PO DAILY 01/18/13 12/24/20 Levothyroxine [Synthroid] 50 mcg DAILY 01/18/13 12/24/20 Metoprolol Tartrate [Lopressor] 100 mg PO DAILY 01/18/13 12/24/20 Pregabalin [Lyrica] 35 mg PO BID 01/18/13 12/24/20 traZODone [Desyrel] 50 mg PO HS 06/02/13 12/24/20 Ketorolac Inj (60Mg) [Toradol Inj 60 mg IM PRN PRN 12/24/20 12/24/20 (60Mg)] LORazepam [Ativan] 0.5 - 1 mg PO TID PRN #14 tablet 12/24/20 Magnesium 500 mg PO DAILY 12/24/20 12/24/20 Naloxone HCl [Narcan] 4 mg NS PRN PRN 12/24/20 12/24/20 Nitrofurantoin [Macrobid] 100 mg PO PRN PRN 12/24/20 12/24/20 fentaNYL 100 MCG PATCH [Duragesic 25 mcg TOP Q3D 12/24/20 12/24/20 100mcg patch] predniSONE [Prednisone] 40 mg PO DAILY 12/24/20 12/24/20 - Allergies Allergies/Adverse Reactions: Allergies Allergy/AdvReac Type Severity Reaction Status Date / Time prochlorperazine edisylate * Allergy Unknown unknown Verified 12/24/20 01:00 [From Compazine] prochlorperazine maleate * Allergy Unknown unknown Verified 12/24/20 01:00 [From Compazine] tramadol Allergy Unknown unknown Verified 12/24/20 01:00 gabapentin AdvReac Unknown Cramps Verified 12/24/20 01:00 rivaroxaban [From Xarelto] AdvReac Unknown Verified 12/24/20 01:00 - Social History Does the pt smoke?: No Smoking Status: Never smoker Does the pt drink ETOH?: No Does the pt have substance abuse?: No - Immunizations Immunizations are current?: Yes - POLST Patient has POLST: No PD ED PE NORMAL - Vitals Vital signs reviewed: Yes - General General: Alert and oriented X 3, No acute distress, Well developed/nourished - HEENT HEENT: Moist mucous membranes - Neck Neck: Supple, no meningeal sign - Cardiac Cardiac: No murmur, No gallop, No rub - Respiratory Respiratory: No respiratory distress, Clear bilaterally - Abdomen Abdomen: Soft, Non tender - Derm Derm: Normal color, Warm and dry - Extremities Extremities: No edema - Neuro Neuro: Alert and oriented X 3, 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 2-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, No motor deficit, No sensory deficit, Normal speech Eye Opening: Spontaneous Motor: Obeys Commands Verbal: Oriented GCS Score: 15 PD ED PE EXPANDED - Cardiac Cardiac: Regular Rhythm (With frequent extra beats) Results - Vitals Vitals: Oxygen O2 Source Nasal cannula - EKG (time done) No standard instances Rate: Rate (enter#) (73) Rhythm: NSR [place]: Normal Intervals: Normal [place] QRS: Normal Ischemia: Normal ST segments Other comments: Other comments (multifocal PVCs.rSR V1, V2) - Labs Labs: Laboratory Tests 05/30/21 05/30/21 05/30/21 02:45 02:45 02:45 WBC 8.2 RBC 4.49 Hgb 12.8 Hct 40.5 MCV 90.2 MCH 28.5 MCHC 31.6 L RDW 13.1 Plt Count 243 MPV 10.0 Neut # (Auto) 5.3 Lymph # (Auto) 2.4 [place] # (Auto) 0.5 Eos # (Auto) 0.0 Baso # (Auto) 0.0 Absolute Nucleated RBC 0.00 Nucleated RBC % 0.0 Sodium 139 Potassium 4.4 Chloride 101 Carbon Dioxide 28 Anion Gap 10.0 BUN 22 H Creatinine 1.0 Estimated GFR (MDRD) 55 L Glucose 104 H Calcium 9.5 Total Bilirubin 0.5 AST 19 ALT 24 Alkaline Phosphatase 69 Troponin I High Sens 9.0 Total Protein 8.0 Albumin 4.6 Globulin 3.4 Albumin/Globulin Ratio 1.4 Lipase 31 TSH 12/24/20 02:45 WBC RBC Hgb Hct MCV MCH MCHC RDW Plt Count MPV Neut # (Auto) Lymph # (Auto) [place] # (Auto) Eos # (Auto) Baso # (Auto) Absolute Nucleated RBC Nucleated RBC % Sodium Potassium Chloride Carbon Dioxide Anion Gap BUN Creatinine Estimated GFR (MDRD) Glucose Calcium Total Bilirubin AST ALT Alkaline Phosphatase Troponin I High Sens Total Protein Albumin Globulin Albumin/Globulin Ratio Lipase TSH 2.83 - Rads (name of study) chest xray Radiology: Prelim report reviewed, See rad report PD MEDICAL DECISION MAKING - ED course Complexity details: reviewed results, re-evaluated patient, considered differential, d/w patient ED course: unremarkable tests including troponin, tsh. frequent PVCs, unifocal on monitor (ekg captured two different morphologies of pvc). she reports feeling much improved after lorazepam and pvcs decreased in frequency. symptoms are of unclear origin, but side effect of prednisone possible, thus advised to stop taking this to see if this leads to lasting improvement in todays symptoms Departure - Departure Disposition: 01 Home, Self Care Clinical Impression: Frequent PVCs, Tremulousness Condition: Stable Instructions: ED Hypertension Conf Out Of Control, ED Symptoms No Dx Follow-Up: Teresa Garcia MD [Primary Care Provider] - Prescriptions: LORazepam [Ativan] 0.5 - 1 mg PO TID PRN #14 tablet PRN Reason: Anxiety Discharge Date/Time: 12/24/20 04:36
[2020-12-24] MEDS ORDERED: LORazepam 2 MG/ML VIAL IVP STA (01:44)
[2020-12-24 02:53] LABS: BASOPHILS % (AUTO) 0.5 %; EOSINOPHILS % (AUTO) 0.2 %; HCT - HEMATOCRIT 40.5 % (37.0-47.0); HGB - HEMOGLOBIN 12.8 g/dL (12.0-16.0); LYMPHOCYTES # (AUTO) 2.4 10^3/uL (1.5-3.5); LYMPHOCYTES % (AUTO) 28.6 %; MEAN CORPUSCULAR HEMOGLOBIN 28.5 pg (27.0-31.0); MEAN CORPUSCULAR HGB CONC 31.6 g/dL (32.0-36.0); MEAN CORPUSCULAR VOLUME 90.2 fL (81.0-99.0); MONOCYTES # (AUTO) 0.5 10^3/uL (0.0-1.0); NEUTROPHILS # (AUTO) 5.3 10^3/uL (1.5-6.6); NEUTROPHILS % (AUTO) 64.2 %; PLT - PLATELET COUNT 243 10^3/uL (130-450); RED BLOOD COUNT 4.49 10^6/uL (4.20-5.40); RED CELL DISTRIBUTION WIDTH 13.1 % (12.0-15.0); WHITE BLOOD COUNT 8.2 x10^3/uL (4.8-10.8)
[2020-12-24 03:05] LABS: ALBUMIN 4.6 g/dL (3.2-5.5); ALBUMIN/GLOBULIN RATIO 1.4 (1.0-2.2); BILIRUBIN,TOTAL 0.5 mg/dL (0.2-1.0); CALCIUM 9.5 mg/dL (8.5-10.3); POTASSIUM 4.4 mmol/L (3.5-5.0)
[2020-12-24] MEDS ORDERED: LORazepam 0.5 MG TABLET PO STA (03:14)
[2020-12-24 04:32] VITALS: BP 169/93
--- NOTE | 2020-12-24 10:21 | XRAY Report ---
PROCEDURE: Chest 2 View X-Ray INDICATIONS: dyspnea TECHNIQUE: 2 view(s) of the chest. COMPARISON: 01/18/2013 FINDINGS: Surgical changes and devices: Cholecystectomy clips are seen. Lungs and pleura: No pleural effusions or pneumothorax. Lungs are clear. Mediastinum: Mediastinal contours are normal. Heart size is normal. Bones and chest wall: No suspicious bony abnormalities. Soft tissues appear unremarkable. IMPRESSION: No acute cardiopulmonary process is seen. Note: No significant discrepancy from the preliminary report. Reviewed by: Thuan Li MD on 12/24/2020 9:19 AM NAV Approved by: Thuan Li MD on 12/24/2020 9:19 AM NAV Station ID: [id number]
== END 2020-12-24 04:36 | disposition home or self-care (01) ==
LOC: EDUNIT# → ED 23:47 → SUPCPDRO 23:47 → ED 12-24 04:36
DX: I49.3 Ventricular premature depolarization (principal); R25.1 Tremor, unspecified; I25.10 Atherosclerotic heart disease of native coronary artery without angina pectoris; Z79.82 Long term (current) use of aspirin
CPT/HCPCS: 36415; 71046; 80053; 83690; 84443; 84484; 85025; 93005; 96374; 99284; A9270; J2060

== ENCOUNTER 2021-04-05 08:00 | Outpatient (CLI) | payer MEDICARE, OTHER ==
[2021-04-05 23:41] LABS: BACTERIAL VAGINOSIS DNA NEGATIVE (NEGATIVE); CANDIDA GLABRATA DNA NEGATIVE (NEGATIVE); CANDIDA GROUP DNA NEGATIVE (NEGATIVE); CANDIDA KRUSEI DNA NEGATIVE (NEGATIVE); TRICHOMONAS VAGINALIS DNA NEGATIVE (NEGATIVE)
== END 2021-04-05 23:59 | disposition home or self-care (01) ==
LOC: LAB.S 08:00
PROVIDERS: ATTEND Physician Assistant Medical
DX: N89.8 Other specified noninflammatory disorders of vagina (principal)
CPT/HCPCS: 87661; 87801

== ENCOUNTER 2021-07-09 14:05 | Emergency (ER) | payer MEDICARE, OTHER ==
--- NOTE | 2021-07-09 14:43 | XRAY Report ---
PROCEDURE: Chest 1 View X-Ray INDICATIONS: Chest pain TECHNIQUE: One view of the chest was acquired. COMPARISON: December 24, 2020 FINDINGS: SUPPORT DEVICES: None. LUNGS/PLEURA: No focal consolidation, pleural effusion or space-occupying pneumothorax. MEDIASTINUM: The cardiomediastinal silhouette is within normal limits. BONES/SOFT TISSUES: No acute abnormality. IMPRESSION: 1.No acute cardiopulmonary abnormality. Reviewed by: Alfredito Zaidi MD on 07/09/2021 2:42 PM PST Approved by: Alfredito Zaidi MD on 07/09/2021 2:42 PM [facility] Station ID: [id number]
[2021-07-09 14:46] LABS: BASOPHILS # (AUTO) 0.1 10^3/uL (0.0-0.1); BASOPHILS % (AUTO) 0.8 %; EOSINOPHILS # (AUTO) 0.4 10^3/uL (0.0-0.7); EOSINOPHILS % (AUTO) 6.6 %; HCT - HEMATOCRIT 42.4 % (37.0-47.0); HGB - HEMOGLOBIN 13.8 g/dL (12.0-16.0); LYMPHOCYTES % (AUTO) 29.7 %; MEAN CORPUSCULAR HEMOGLOBIN 29.5 pg (27.0-31.0); MEAN CORPUSCULAR HGB CONC 32.5 g/dL (32.0-36.0); MEAN CORPUSCULAR VOLUME 90.6 fL (81.0-99.0); MEAN PLATELET VOLUME 10.1 fL (7.9-10.8); MONOCYTES # (AUTO) 0.5 10^3/uL (0.0-1.0); MONOCYTES % (AUTO) 7.4 %; NEUTROPHILS # (AUTO) 3.7 10^3/uL (1.5-6.6); NEUTROPHILS % (AUTO) 55.2 %; PLT - PLATELET COUNT 237 10^3/uL (130-450); RED BLOOD COUNT 4.68 10^6/uL (4.20-5.40); RED CELL DISTRIBUTION WIDTH 13.8 % (12.0-15.0); WHITE BLOOD COUNT 6.6 x10^3/uL (4.8-10.8)
[2021-07-09 14:54] LABS: ALBUMIN 4.2 g/dL (3.2-5.5); ALBUMIN/GLOBULIN RATIO 1.2 (1.0-2.2); BILIRUBIN,TOTAL 0.3 mg/dL (0.2-1.0); CALCIUM 9.4 mg/dL (8.5-10.3); CREATININE 0.9 mg/dL (0.4-1.0); TOTAL PROTEIN 7.7 g/dL (6.7-8.2)
--- NOTE | 2021-07-09 15:11 | ED Physician Documentation ---
History of Present Illness - Stated complaint Stated Complaint: CHEST PX - Chief complaint Chief Complaint: Cardiac - Additonal information Additional information: 70-year-old female presents emergency department for evaluation of increased f requency PVCs. She has a history of previous atrial fib flutter and status post ablation. She also has a watchman device in place. Over the last few days she has noticed increased PVCs. She sometimes feels lightheaded and dizzy as well as short of air. She takes metoprolol long-acting 50 mg twice daily. Hospital Television Rental Clerk is Dr. Morales through [facility]. She saw him about 10 days ago. She called his office this afternoon and was advised to come to the ER. No syncope no exertional chest pain. Review of Systems Constitutional: reports: Reviewed and negative Ears: reports: Reviewed and negative Nose: reports: Reviewed and negative Throat: reports: Reviewed and negative Cardiac: reports: Chest pain / pressure, Palpitations. 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 : Frequency HEENT: None Psych: None Musculoskeletal: Osteoarthritis Derm: None - Past Surgical History Past Surgical History: Yes General: Cholecystectomy Ortho: Knee replacement - Present Medications Home Medications: Ambulatory Orders Medication Instructions Recorded Confirmed Aspirin [Aspir 81] 81 mg PO DAILY 01/18/13 12/24/20 DULoxetine [Cymbalta] 60 mg PO DAILY 01/18/13 12/24/20 Levothyroxine [Synthroid] 50 mcg DAILY 01/18/13 12/24/20 Metoprolol Tartrate [Lopressor] 100 mg PO DAILY 01/18/13 12/24/20 Pregabalin [Lyrica] 35 mg PO BID 01/18/13 12/24/20 traZODone [Desyrel] 50 mg PO HS 06/02/13 12/24/20 Ketorolac Inj (60Mg) [Toradol Inj 60 mg IM PRN PRN 12/24/20 12/24/20 (60Mg)] LORazepam [Ativan] 0.5 - 1 mg PO TID PRN #14 tablet 12/24/20 Magnesium 500 mg PO DAILY 12/24/20 12/24/20 Naloxone HCl [Narcan] 4 mg NS PRN PRN 12/24/20 12/24/20 Nitrofurantoin [Macrobid] 100 mg PO PRN PRN 12/24/20 12/24/20 fentaNYL 100 MCG PATCH [Duragesic 25 mcg TOP Q3D 12/24/20 12/24/20 100mcg patch] predniSONE [Prednisone] 40 mg PO DAILY 12/24/20 12/24/20 diltiaZEM [Cardizem] 60 mg PO Q8H #90 tablet 07/09/21 - Allergies Allergies/Adverse Reactions: Allergies Allergy/AdvReac Type Severity Reaction Status Date / Time prochlorperazine edisylate * Allergy Unknown unknown Verified 07/09/21 14:10 [From Compazine] prochlorperazine maleate * Allergy Unknown unknown Verified 07/09/21 14:10 [From Compazine] tramadol Allergy Unknown unknown Verified 07/09/21 14:10 gabapentin AdvReac Unknown Cramps Verified 07/09/21 14:10 rivaroxaban [From Xarelto] AdvReac Unknown Verified 07/09/21 14:10 - Social History Does the pt smoke?: No Smoking Status: Never smoker Does the pt drink ETOH?: No Does the pt have substance abuse?: No - Immunizations Immunizations are current?: Yes - POLST Patient has POLST: No PD ED PE NORMAL - General General: Alert and oriented X 3, No acute distress - HEENT HEENT: PERRL - Neck Neck: Supple, no meningeal sign - Cardiac Cardiac: RRR, No murmur, No gallop, Strong equal pulses - Respiratory Respiratory: Clear bilaterally - Abdomen Abdomen: Normal bowel sounds, Soft, Non tender, Non distended - Back Back: No CVA TTP - Derm Derm: Normal color, Warm and dry, No rash - Extremities Extremities: No deformity - Neuro Neuro: Alert and oriented X 3 Eye Opening: Spontaneous Motor: Obeys Commands Verbal: Oriented GCS Score: 15 Results - Vitals Vitals: Vital Signs - 24 hr 07/09/21 07/09/21 07/09/21 14:10 16:09 16:18 Temperature 36.5 C Heart Rate 70 87 Heart Rate [ 93 Sitting] Heart Rate [ 95 Standing] Heart Rate [ 89 Supine] Respiratory 16 16 Rate Blood Pressure 156/56 H 121/64 Blood Pressure 127/90 H [Sitting] Blood Pressure 148/106 H [Standing] Blood Pressure 138/71 H [Supine] O2 Saturation 97 95 Oxygen O2 Source Room air - Labs Labs: Laboratory Tests 07/09/21 07/09/21 07/09/21 14:32 14:32 14:32 WBC 6.6 RBC 4.68 Hgb 13.8 Hct 42.4 MCV 90.6 MCH 29.5 MCHC 32.5 RDW 13.8 Plt Count 237 MPV 10.1 Neut # (Auto) 3.7 Lymph # (Auto) 2.0 [place] # (Auto) 0.5 Eos # (Auto) 0.4 Baso # (Auto) 0.1 Absolute Nucleated RBC 0.00 Nucleated RBC % 0.0 Sodium 142 Potassium 4.0 Chloride 102 Carbon Dioxide 29 Anion Gap 11.0 BUN 23 H Creatinine 0.9 Estimated GFR (MDRD) 62 L Glucose 86 Calcium 9.4 Phosphorus Magnesium Total Bilirubin 0.3 AST 27 ALT 39 Alkaline Phosphatase 83 Troponin I High Sens 4.7 Total Protein 7.7 Albumin 4.2 Globulin 3.5 Albumin/Globulin Ratio 1.2 Lipase 32 07/09/21 14:32 WBC RBC Hgb Hct MCV MCH MCHC RDW Plt Count MPV Neut # (Auto) Lymph # (Auto) [place] # (Auto) Eos # (Auto) Baso # (Auto) Absolute Nucleated RBC Nucleated RBC % Sodium Potassium Chloride Carbon Dioxide Anion Gap BUN Creatinine Estimated GFR (MDRD) Glucose Calcium Phosphorus 4.2 Magnesium 2.5 Total Bilirubin AST ALT Alkaline Phosphatase Troponin I High Sens Total Protein Albumin Globulin Albumin/Globulin Ratio Lipase - Rads (name of study) CXR Radiology: Final report received (No acute cardiopulmonary process.) PD MEDICAL DECISION MAKING - ED course Complexity details: reviewed old records, reviewed results, re-evaluated patient, d/w patient, d/w design center consultant (Ish) ED course: 70-year-old female presents emergency department for evaluation of increased frequency of her PVCs as well as palpitations. She reports feeling somewhat dizzy but no syncopal episodes. No chest pain. Screening EKG is nonischemic but does show bigeminy. While here in the emergency department she has had frequent PVCs but no sustained V. tach. Screening labs including her electrolytes are all essentially unremarkable. Chest x-ray with out focal opacity. I did discuss this case with her repairer welding equipment Dr. Morales who at this time recommends discontinuing her beta-stephanie and starting her on diltiazem 60 mg 3 times daily. He reports to me that her last echocardiogram in March 2020 showed a normal ejection fraction. He would like to see her in follow-up within the next week for repeat EKG. Today patient did have orthostatic vital signs completed that were unremarkable. Emergent return precautions were discussed for syncope worsening symptoms and shortness of air. Departure - Departure Disposition: Home, Self Care Clinical Impression: Palpitations, PVC (premature ventricular contraction) Condition: Stable Record reviewed to determine appropriate education?: Yes Instructions: Premature Ventricular Contract About Follow-Up: KIMMIE MORALES MD [Physician No Access] - Prescriptions: diltiaZEM [Cardizem] 60 mg PO Q8H #90 tablet Comments: Evy prince are seen in the emergency department today for increased sensation of PVCs and palpitations. Your screening EKG did show frequent PVCs. Your chest x-ray and labs however were all normal. I did discuss your case with Dr. Lao with Rich your repairer welding equipment. At this time he recommends that you stop taking the metoprolol. Take no further doses. He would like to start you on diltiazem, this is a medication that is a calcium channel stephanie. It can often help control arrhythmias as well as PVCs. I am please begin taking it 3 times a day. Your repairer welding equipment would like you to have a repeat EKG in the next week. Call his office to arrange follow-up. If despite the change in medications you are having any fainting episodes, develop chest pain or shortness of air then please return immediately to any ER. Your prescription has been sent electronically to the [facility] in [place].
[2021-07-09 15:42] LABS: MAGNESIUM 2.5 mg/dL (1.7-2.8); PHOSPHORUS 4.2 mg/dL (2.5-4.6)
[2021-07-09] MEDS ORDERED: diltiaZEM INJ 5 MG/ML VIAL IVP STA (15:59)
[2021-07-09 16:19] VITALS: BP 138/71
[2021-07-09] MEDS ORDERED: diltiaZEM 30 MG TABLET PO STA (16:22)
== END 2021-07-09 17:02 | disposition home or self-care (01) ==
LOC: ED 14:05
DX: I49.3 Ventricular premature depolarization (principal); R00.8 Other abnormalities of heart beat; I25.10 Atherosclerotic heart disease of native coronary artery without angina pectoris; Z79.82 Long term (current) use of aspirin
CPT/HCPCS: 36415; 71045; 80053; 83690; 83735; 84100; 84484; 85025; 93005; 96374; 99284; A9270

== ENCOUNTER 2023-06-07 08:00 | Outpatient (CLI) | payer MEDICARE, OTHER ==
[2023-06-07 17:43] LABS: BILIRUBIN,URINE NEGATIVE (NEGATIVE); GLUCOSE, URINE (UA) NEGATIVE (NEGATIVE); KETONES,URINE (UA) TRACE mg/dL (NEGATIVE); LEUKOCYTE ESTERASE, URINE NEGATIVE (NEGATIVE); NITRITE,URINE NEGATIVE (NEGATIVE); OCCULT BLOOD,URINE NEGATIVE (NEGATIVE); PH,URINE 5.5 PH (5.0-7.5); PROTEIN,URINE TRACE mg/dL (NEGATIVE); UROBILINOGEN,URINE 0.2 (NORMAL) E.U./dL (NORMAL)
[2023-06-07 17:47] LABS: CLARITY,URINE CLEAR (CLEAR); RBC,URINE 0-5 /HPF (0-5); WBC,URINE 0-3 /HPF (0-5)
[2023-06-07 17:48] LABS: BACTERIA,URINE Rare /HPF (None Seen); MUCUS,URINE Few Strands; SQUAMOUS EPITHELIAL CELL,UR FEW Squamous (<= Few)
[2023-06-07 21:22] LABS: BACTERIAL VAGINOSIS DNA NEGATIVE (NEGATIVE); CANDIDA GLABRATA DNA NEGATIVE (NEGATIVE); CANDIDA GROUP DNA NEGATIVE (NEGATIVE); CANDIDA KRUSEI DNA NEGATIVE (NEGATIVE); TRICHOMONAS VAGINALIS DNA NEGATIVE (NEGATIVE)
== END 2023-06-07 23:59 | disposition home or self-care (01) ==
LOC: LAB.S 08:00
PROVIDERS: ATTEND Physician Assistant Medical
DX: N89.8 Other specified noninflammatory disorders of vagina (principal); R30.0 Dysuria
CPT/HCPCS: 81001; 81514; 87086; 87661; 87801

== ENCOUNTER 2023-09-16 12:10 | Outpatient (CLI) | payer MEDICARE, OTHER | END 2023-09-16 23:59 | disposition short-term general hospital (02) | LOC: EMS 12:10 | DX: R07.9 Chest pain, unspecified (principal); M54.9 Dorsalgia, unspecified; R68.84 Jaw pain; R94.31 Abnormal electrocardiogram [ECG] [EKG] | CPT/HCPCS: A0425; A0427 ==